=== PATIENT | male | born 1990 | race Caucasian/White ===

== ENCOUNTER 2019-09-05 15:26 | Emergency (ER) | payer OTHER ==
[~2019-09-05] VITALS: Ht 182.9 cm; Wt 76.2 kg
[2019-09-05 15:42] VITALS: Ht 182.9 cm; Wt 76.2 kg
[2019-09-05 16:28] VITALS: BP 141/84
== END 2019-09-05 16:28 | disposition home or self-care (01) ==
LOC: ED 15:26
DX: T15.01XA Foreign body in cornea, right eye, initial encounter (principal); W45.8XXA Other foreign body or object entering through skin, initial encounter; Y93.89 Activity, other specified; Y92.89 Other specified places as the place of occurrence of the external cause; Y99.8 Other external cause status
CPT/HCPCS: 90715